=== PATIENT | female | born 1975 | race Caucasian/White ===

== ENCOUNTER 2020-09-23 07:36 | Emergency (ER) | payer OTHER ==
[2020-09-23 07:43] VITALS: PULSE 95; TEMP 97; BMI 26.6
[2020-09-23] MEDS ORDERED: OXYMETAZOLINE 0.05% NASAL SOLUTION 15 ML BOTTLE NS ONE (08:29)
[2020-09-23 09:05] VITALS: BP 112/71
[2020-09-23 09:11] LABS: INR 1.03 (0.83-1.09); PROTHROMBIN TIME (PATIENT) 12.5 SEC (9.7-13.0)
[2020-09-23 09:18] LABS: BASO % 0.6 % (0-2.0); EOS % 0.9 % (0-4.5); HEMATOCRIT 34.9 % (32.4-45.2); HEMOGLOBIN 11.7 GM/dL (10.7-15.3); LYMPH % 19.4 % (8-40); MCH 32.5 pg (25.7-33.7); MCHC 33.5 g/dl (32.0-36.0); MEAN CELL VOLUME 97.2 fl (80-96); MONO % 12.3 % (3.8-10.2); NEUT % 66.8 % (42.8-82.8); PLATELET COUNT 214 10^3/uL (134-434); RBC 3.59 M/mm3 (3.60-5.2); RDW 14.2 % (11.6-15.6); WHITE BLOOD COUNT 3.7 K/mm3 (4.0-10.0)
[2020-09-23 09:21] LABS: CALCIUM 8.7 mg/dL (8.5-10.1)
[2020-09-23 09:22] LABS: BLOOD UREA NITROGEN 16.2 mg/dL (7-18)
[2020-09-23 09:25] LABS: CREATININE 0.6 mg/dL (0.55-1.3)
[2020-09-23 09:26] LABS: BILIRUBIN,TOTAL 0.5 mg/dL (0.2-1); TOT PROT 7.3 g/dl (6.4-8.2)
== END 2020-09-23 10:00 | disposition home or self-care (01) ==
LOC: JER 07:36
DX: R04.0 Epistaxis (principal)
CPT/HCPCS: 36415; 80053; 85025; 85610; 86850; 86900; 86901; 99283-25